=== PATIENT | female | born 1950 | race Caucasian/White ===

== ENCOUNTER 2016-11-08 08:18 | Outpatient (CLI) | payer BC | END 2016-11-08 08:19 | disposition home or self-care (01) | DX: C88.4 Extranodal marginal zone B-cell lymphoma of mucosa-associated lymphoid tissue [MALT-lymphoma] (principal) ==

== ENCOUNTER 2017-04-21 08:27 | Outpatient (CLI) | payer BC ==
[2017-04-21 11:36] LABS: CALCIUM 9.2 mg/dL (8.5-10.3); POTASSIUM 4.4 mmol/L (3.5-5.0)
[2017-04-21 11:51] LABS: HEMOGLOBIN A1C 0.54 g/dL
== END 2017-04-21 08:28 | disposition home or self-care (01) ==
LOC: LAB.F 08:27
PROVIDERS: ATTEND Physician Assistant Medical
DX: E11.9 Type 2 diabetes mellitus without complications (principal)
CPT/HCPCS: 36415; 80048; 83036

== ENCOUNTER 2017-04-27 11:00 | Outpatient (CLI) | payer BC ==
[2017-04-27 14:35] LABS: BILIRUBIN,TOTAL 1.8 mg/dL (0.2-1.0); CALCIUM 9.3 mg/dL (8.5-10.3); CREATININE 0.9 mg/dL (0.4-1.0); POTASSIUM 4.4 mmol/L (3.5-5.0); TOTAL PROTEIN 6.5 g/dL (6.7-8.2)
== END 2017-04-27 11:01 | disposition home or self-care (01) ==
LOC: LAB.WCP 11:00
PROVIDERS: ATTEND Internal Medicine Cardiovascular Disease
DX: I10 Essential (primary) hypertension (principal); E78.5 Hyperlipidemia, unspecified
CPT/HCPCS: 36415; 80053; 83880; 84443

== ENCOUNTER 2017-05-18 07:52 | Outpatient (CLI) | payer BC ==
[2017-05-18 12:25] LABS: CALCIUM 9.4 mg/dL (8.5-10.3)
== END 2017-05-18 07:53 | disposition home or self-care (01) ==
LOC: LAB.F 07:52
PROVIDERS: ATTEND Internal Medicine Cardiovascular Disease
DX: R60.0 Localized edema (principal); I48.0 Paroxysmal atrial fibrillation; I10 Essential (primary) hypertension
CPT/HCPCS: 36415; 80048; 83880

== ENCOUNTER 2017-11-29 08:16 | Outpatient (CLI) | payer BC ==
[2017-11-29 11:42] LABS: BASOPHILS % (AUTO) 0.5 %; EOSINOPHILS # (AUTO) 0.4 10^3/uL (0.0-0.7); EOSINOPHILS % (AUTO) 6.2 %; LYMPHOCYTES # (AUTO) 1.3 10^3/uL (1.5-3.5); LYMPHOCYTES % (AUTO) 21.6 %; MEAN CORPUSCULAR HEMOGLOBIN 32.6 pg (27.0-31.0); MEAN CORPUSCULAR HGB CONC 34.5 g/dL (32.0-36.0); MEAN CORPUSCULAR VOLUME 94.5 fL (81.0-99.0); MEAN PLATELET VOLUME 9.2 fL (7.9-10.8); MONOCYTES # (AUTO) 0.6 10^3/uL (0.0-1.0); MONOCYTES % (AUTO) 9.4 %; NEUTROPHILS # (AUTO) 3.8 10^3/uL (1.5-6.6); NEUTROPHILS % (AUTO) 62.3 %; PLT - PLATELET COUNT 203 10^3/uL (130-450); RED BLOOD COUNT 4.28 10^6/uL (4.20-5.40); RED CELL DISTRIBUTION WIDTH 13.5 % (12.0-15.0); WHITE BLOOD COUNT 6.1 x10^3/uL (4.8-10.8)
[2017-11-29 11:58] LABS: ALBUMIN 4.1 g/dL (3.2-5.5); ALBUMIN/GLOBULIN RATIO 1.8 (1.0-2.2); ALKALINE PHOSPHATASE 103 IU/L (42-121); ALT ALANINE AMINOTRANSFERASE 17 IU/L (10-60); AST ASPARTATE AMINOTRANSFERASE 16 IU/L (10-42); BILIRUBIN,TOTAL 1.4 mg/dL (0.2-1.0); BUN - BLOOD UREA NITROGEN 22 mg/dL (6-20); CALCIUM 9.3 mg/dL (8.5-10.3); CARBON DIOXIDE - CO2 26 mmol/L (21-32); CHLORIDE 102 mmol/L (101-111); CHOL/HDL RATIO 4.2 (<4.4); CHOLESTEROL 147 mg/dL; GFR - MDRD 55 (>89); GLUCOSE 118 mg/dL (70-100); HDL CHOLESTEROL 35 mg/dL; LDL CHOLESTEROL,CALCULATED 84 mg/dL; LDL/HDL RATIO 2.4 (<4.4); SODIUM 137 mmol/L (135-145); TOTAL PROTEIN 6.4 g/dL (6.7-8.2); VLDL CHOLESTEROL 28 mg/dL
[2017-11-29 12:23] LABS: HB2 TOTAL 15.1 g/dL; HEMOGLOBIN A1C 0.61 g/dL; HEMOGLOBIN A1C % 5.8 % (4.6-6.2)
== END 2017-11-29 08:17 | disposition home or self-care (01) ==
LOC: LAB.F 08:16
PROVIDERS: ATTEND Physician Assistant Medical
DX: E11.9 Type 2 diabetes mellitus without complications (principal); D50.9 Iron deficiency anemia, unspecified
CPT/HCPCS: 36415; 80053; 80061; 83036; 83721; 85025

== ENCOUNTER 2018-04-16 15:24 | Outpatient (CLI) | payer BC ==
[2018-04-16 18:22] LABS: BASOPHILS % (AUTO) 0.2 %; EOSINOPHILS # (AUTO) 0.2 10^3/uL (0.0-0.7); EOSINOPHILS % (AUTO) 2.6 %; LYMPHOCYTES # (AUTO) 1.1 10^3/uL (1.5-3.5); LYMPHOCYTES % (AUTO) 12.1 %; MEAN CORPUSCULAR HEMOGLOBIN 31.8 pg (27.0-31.0); MEAN CORPUSCULAR HGB CONC 33.1 g/dL (32.0-36.0); MEAN CORPUSCULAR VOLUME 96.1 fL (81.0-99.0); MEAN PLATELET VOLUME 9.2 fL (7.9-10.8); MONOCYTES % (AUTO) 10.3 %; NEUTROPHILS # (AUTO) 7.1 10^3/uL (1.5-6.6); NEUTROPHILS % (AUTO) 74.8 %; PLT - PLATELET COUNT 228 10^3/uL (130-450); RED BLOOD COUNT 5.04 10^6/uL (4.20-5.40); RED CELL DISTRIBUTION WIDTH 13.2 % (12.0-15.0); WHITE BLOOD COUNT 9.5 x10^3/uL (4.8-10.8)
[2018-04-17 08:53] LABS: ALBUMIN 4.2 g/dL (3.2-5.5); ALBUMIN/GLOBULIN RATIO 1.4 (1.0-2.2); BILIRUBIN,TOTAL 2.2 mg/dL (0.2-1.0); CALCIUM 9.6 mg/dL (8.5-10.3); CREATININE 1.1 mg/dL (0.4-1.0); TOTAL PROTEIN 7.2 g/dL (6.7-8.2)
== END 2018-04-16 15:25 | disposition home or self-care (01) ==
LOC: LAB.F 15:24
PROVIDERS: ATTEND Physician Assistant Medical
DX: R19.7 Diarrhea, unspecified (principal); D50.9 Iron deficiency anemia, unspecified
CPT/HCPCS: 36415; 80053; 85025

== ENCOUNTER 2018-04-17 16:09 | Emergency (ER) | payer BC, MEDICARE ==
[2018-04-17] MEDS ORDERED: LACTATED RINGERS 2,000 ML IV STA (16:41)
--- NOTE | 2018-04-17 16:42 | ED Physician Documentation ---
PD HPI ABD PAIN - Stated complaint Stated Complaint: DIARRHEA [id number] - Chief complaint Chief Complaint: Abd Pain - History obtained from History obtained from: Patient, Family - History of Present Illness Timing - onset: Other (After attending a green party 5 days ago she became very ill with lots of diarrhea, chills and fevers. No significant abdominal pain. Chills and fever have resolved and she had one episode of vomiting that night, but she persistently has profuse diarrhea which is slowly improving. She saw her doctor yesterday who did blood work showing a white count of 9-1/2 with a left shift. Conservative care was advised. She denies any recent travel, camping, or antibiotic use. No sick contacts that are known.) Review of Systems Ten Systems: 10 systems reviewed and negative Constitutional: reports: Fever, Chills Cardiac: denies: Chest pain / pressure, Palpitations Respiratory: denies: Dyspnea, Cough GI: reports: Vomiting (gone), Diarrhea. denies: Abdominal Pain, Bloody / black stool PD PAST MEDICAL HISTORY - Past Medical History Cardiovascular: Hypertension, High cholesterol, Coronary artery disease, Pulmonary embolism, Angina, Atrial fibrillation Respiratory: Asthma, Other Endocrine/Autoimmune: Type 2 diabetes, HyPOthyroidism GI: Chronic diarrhea HEENT: Glaucoma Musculoskeletal: Osteoarthritis - Past Surgical History Past Surgical History: Yes General: Cholecystectomy, Appendectomy Cardiovascular: CABG - Present Medications Home Medications: Ambulatory Orders Medication Instructions Recorded Confirmed Atorvastatin Calcium 10 mg PO QPM 08/04/14 09/23/14 Levothyroxine [Synthroid] 100 mcg PO DAILY 08/04/14 05/18/16 Metoprolol Succinate 50 mg PO QDBREAKFAST 08/04/14 09/23/14 Aspirin [Aspir-Low] 81 mg PO DAILY 05/18/16 05/18/16 Cholecalciferol (Vitamin D3) 2,000 unit PO DAILY 05/18/16 05/18/16 [Vitamin D3] Krill/[place]-3/Dha/Epa/Lipids [Hm 1 each PO DAILY 05/18/16 05/18/16 Megakrill 500 mg Softgel] Latanoprost 0.005% Ophth Drops 1 drops OPTH QPM 05/18/16 05/18/16 [Xalatan Ophth Drops] Metformin HCl 250 mg PO BIDWM 05/18/16 05/18/16 Metoprolol Succinate 25 mg PO QPM 05/18/16 05/18/16 Multivitamin [Multivitamins] 1 each PO DAILY 05/18/16 05/18/16 [place]-3/Dha/Epa/Fish Oil [Fish Oil 1 cap PO DAILY 05/18/16 05/18/16 EC 1,200 mg Softgel] Timolol 0.5% Ophth Drops [Timoptic 1 drops OPTH BID 05/18/16 05/18/16 0.5% Ophth Drops] Diphenoxylate/Atropine [Lomotil] 1 each PO QID PRN #16 tablet 04/17/18 - Allergies Allergies/Adverse Reactions: Allergies Allergy/AdvReac Type Severity Reaction Status Date / Time prochlorperazine edisylate * Allergy Severe throat Verified 08/04/14 20:34 [From Compazine] swelling prochlorperazine maleate * Allergy Severe throat Verified 08/04/14 20:34 [From Compazine] swelling codeine AdvReac Severe Hallucinati Verified 08/04/14 20:33 ons - Social History Does the pt smoke?: No Smoking Status: Former smoker Does the pt drink ETOH?: Yes Does the pt have substance abuse?: No - Immunizations Immunizations are current?: Yes PD ED PE NORMAL - Vitals Vital signs reviewed: Yes - General General: Alert and oriented X 3, No acute distress - Neck Neck: Supple, no meningeal sign, No bony TTP - Cardiac Cardiac: RRR, No murmur - Respiratory Respiratory: No respiratory distress, Clear bilaterally - Abdomen Abdomen: Normal bowel sounds, Soft, Non tender - Neuro Neuro: Alert and oriented X 3, Normal speech Results - Vitals Vitals: Vital Signs - 24 hr 04/17/18 04/17/18 16:16 16:31 Temperature 36.2 C L 36.6 C Heart Rate 74 64 Respiratory 18 16 Rate Blood Pressure 180/90 H O2 Saturation 96 100 Oxygen O2 Source Room air - Labs Labs: Microbiology 04/17/18 17:40 Clostridium difficile (PCR) - Final Stool 04/17/18 17:40 Campylobacter Antigen Assay - Final Stool Laboratory Tests 04/17/18 04/17/18 16:53 16:53 WBC 8.2 RBC 4.98 Hgb 16.0 Hct 46.9 MCV 94.2 MCH 32.1 H MCHC 34.0 RDW 13.1 Plt Count 224 MPV 8.5 Neut # (Auto) 5.8 Lymph # (Auto) 1.3 L Person # (Auto) 0.9 Eos # (Auto) 0.2 Baso # (Auto) 0.0 Absolute Nucleated RBC 0.00 Nucleated RBC % 0.0 Sodium 135 Potassium 3.8 Chloride 102 Carbon Dioxide 25 Anion Gap 8.0 BUN 19 Creatinine 1.1 H Estimated GFR (MDRD) 49 L Glucose 129 H Calcium 9.1 Total Bilirubin 2.2 H AST 17 ALT 22 Alkaline Phosphatase 131 H Total Protein 7.1 Albumin 4.2 Globulin 2.9 Albumin/Globulin Ratio 1.4 Lipase 31 PD MEDICAL DECISION MAKING - ED course ED course: 67-year-old woman with diarrhea, potentially infectious. Initial stool studies are negative as was her CBC. She is feeling better after IV fluids and Lomotil. - Sepsis Event Vital Signs: Vital Signs - 24 hr 04/17/18 04/17/18 16:16 16:31 Temperature 36.2 C L 36.6 C Heart Rate 74 64 Respiratory 18 16 Rate Blood Pressure 180/90 H O2 Saturation 96 100 Oxygen O2 Source Room air Departure - Departure Disposition: 01 Home, Self Care Clinical Impression: Infectious diarrhea Condition: Good Record reviewed to determine appropriate education?: Yes Instructions: ED Gastroenteritis Report Pend Prescriptions: Diphenoxylate/Atropine [Lomotil] 1 each PO QID PRN #16 tablet PRN Reason: Diarrhea Comments: Stool cultures will take a day or 2 to process. We will call you if they are positive. If not better in 2 days follow-up with your physician and return here if worse. Your blood pressure was elevated today on check into the emergency department. This does not mean that you have hypertension, it is a common phenomenon to come to the emergency department and have elevated blood pressure. I recommend that you see your primary care physician within the week to have it rechecked when you are feeling better.
[2018-04-17 17:01] LABS: BASOPHILS % (AUTO) 0.3 %; EOSINOPHILS # (AUTO) 0.2 10^3/uL (0.0-0.7); EOSINOPHILS % (AUTO) 2.7 %; LYMPHOCYTES # (AUTO) 1.3 10^3/uL (1.5-3.5); LYMPHOCYTES % (AUTO) 15.6 %; MEAN CORPUSCULAR HEMOGLOBIN 32.1 pg (27.0-31.0); MEAN CORPUSCULAR VOLUME 94.2 fL (81.0-99.0); MEAN PLATELET VOLUME 8.5 fL (7.9-10.8); MONOCYTES # (AUTO) 0.9 10^3/uL (0.0-1.0); MONOCYTES % (AUTO) 10.4 %; NEUTROPHILS # (AUTO) 5.8 10^3/uL (1.5-6.6); PLT - PLATELET COUNT 224 10^3/uL (130-450); RED BLOOD COUNT 4.98 10^6/uL (4.20-5.40); RED CELL DISTRIBUTION WIDTH 13.1 % (12.0-15.0); WHITE BLOOD COUNT 8.2 x10^3/uL (4.8-10.8)
[2018-04-17 17:16] LABS: ALBUMIN 4.2 g/dL (3.2-5.5); ALBUMIN/GLOBULIN RATIO 1.4 (1.0-2.2); BILIRUBIN,TOTAL 2.2 mg/dL (0.2-1.0); CALCIUM 9.1 mg/dL (8.5-10.3); CREATININE 1.1 mg/dL (0.4-1.0); TOTAL PROTEIN 7.1 g/dL (6.7-8.2)
[2018-04-17] MEDS ORDERED: DIPHENOX/ATROPINE 2.5/0.025 MG TABLET PO STA (18:08)
[2018-04-17 19:57] VITALS: BP 146/64
== END 2018-04-17 20:07 | disposition home or self-care (01) ==
LOC: ED 16:09
DX: A09 Infectious gastroenteritis and colitis, unspecified (principal); I10 Essential (primary) hypertension; E78.00 Pure hypercholesterolemia, unspecified; I25.119 Atherosclerotic heart disease of native coronary artery with unspecified angina pectoris; Z95.1 Presence of aortocoronary bypass graft; I48.91 Unspecified atrial fibrillation; E11.9 Type 2 diabetes mellitus without complications; Z79.84 Long term (current) use of oral hypoglycemic drugs; E03.9 Hypothyroidism, unspecified; M19.90 Unspecified osteoarthritis, unspecified site; Z79.82 Long term (current) use of aspirin; Z87.891 Personal history of nicotine dependence
CPT/HCPCS: 36415; 80053; 83690; 85025; 87045; 87046; 87493; 96360; 99283; A9270; J7120

== ENCOUNTER 2018-05-04 10:00 | Emergency (ER) | payer BC ==
[2018-05-04] MEDS ORDERED: PROPARACAINE 0.5% OPHTH DROPS 15 ML RIGHTEYE STA (11:50)
--- NOTE | 2018-05-04 12:27 | ED Physician Documentation ---
History of Present Illness - Stated complaint Stated Complaint: R EYE IRRITATION - Chief complaint Chief Complaint: Heent - Additonal information Additional information: hx from pt rubbed her eye this AM and it became red and teary now L eye too burning watery no dc no contacts hx glaucoma takes gtt every day just hasn't so far today 2/2 above Review of Systems Constitutional: denies: Fever Eyes: reports: Irritation PD PAST MEDICAL HISTORY - Past Medical History Past Medical History: Yes Cardiovascular: Hypertension, High cholesterol, Coronary artery disease, Pulmonary embolism, Angina, Atrial fibrillation Respiratory: Asthma, Other Neuro: None Endocrine/Autoimmune: Type 2 diabetes, HyPOthyroidism GI: Chronic diarrhea : None HEENT: Glaucoma Musculoskeletal: Osteoarthritis - Past Surgical History Past Surgical History: Yes General: Cholecystectomy, Appendectomy Cardiovascular: CABG - Present Medications Home Medications: Ambulatory Orders Medication Instructions Recorded Confirmed Atorvastatin Calcium 10 mg PO QPM 08/04/14 09/23/14 Levothyroxine [Synthroid] 100 mcg PO DAILY 08/04/14 05/18/16 Metoprolol Succinate 50 mg PO QDBREAKFAST 08/04/14 09/23/14 Aspirin [Aspir-Low] 81 mg PO DAILY 05/18/16 05/18/16 Cholecalciferol (Vitamin D3) 2,000 unit PO DAILY 05/18/16 05/18/16 [Vitamin D3] Krill/[place]-3/Dha/Epa/Lipids [Hm 1 each PO DAILY 05/18/16 05/18/16 Megakrill 500 mg Softgel] Latanoprost 0.005% Ophth Drops 1 drops OPTH QPM 05/18/16 05/18/16 [Xalatan Ophth Drops] Metformin HCl 250 mg PO BIDWM 05/18/16 05/18/16 Metoprolol Succinate 25 mg PO QPM 05/18/16 05/18/16 Multivitamin [Multivitamins] 1 each PO DAILY 05/18/16 05/18/16 [place]-3/Dha/Epa/Fish Oil [Fish Oil 1 cap PO DAILY 05/18/16 05/18/16 EC 1,200 mg Softgel] Timolol 0.5% Ophth Drops [Timoptic 1 drops OPTH BID 05/18/16 05/18/16 0.5% Ophth Drops] Diphenoxylate/Atropine [Lomotil] 1 each PO QID PRN #16 tablet 06/12/18 Olopatadine HCl [Patanol] 1 drops OP BID PRN #1 bottle 05/04/18 - Allergies Allergies/Adverse Reactions: Allergies Allergy/AdvReac Type Severity Reaction Status Date / Time prochlorperazine edisylate * Allergy Severe throat Verified 08/04/14 20:34 [From Compazine] swelling prochlorperazine maleate * Allergy Severe throat Verified 08/04/14 20:34 [From Compazine] swelling codeine AdvReac Severe Hallucinati Verified 05/04/18 10:13 ons - Social History Does the pt smoke?: No Smoking Status: Never smoker Does the pt drink ETOH?: Yes Does the pt have substance abuse?: No - Immunizations Immunizations are current?: Yes - POLST Patient has POLST: No PD ED PE NORMAL - Vitals Vital signs reviewed: Yes - HEENT HEENT: PERRL, EOMI, Other (no FB even with lid eversion, both eyes injected and tearing with photophobia, no dc, globes soft, no hazy cornea, pain relieved with proparacaine, no abrasions) Results - Vitals Vitals: Vital Signs - 24 hr 05/04/18 05/04/18 10:11 12:41 Temperature 36.3 C L Heart Rate 58 L Respiratory 18 Rate Blood Pressure 184/72 H 175/73 H O2 Saturation 100 Oxygen O2 Source Room air PD MEDICAL DECISION MAKING - ED course ED course: has hx glaucoma but no sx until rubbed eyes this AM globes soft, not hazy, relieved with proparacaine, do not think this is glaucoma , will check letty but may be slightly elev given known glaucoma seems like allergic conjunc will dc on patonol IOP R 24 IOP L 19 - Sepsis Event Vital Signs: Vital Signs - 24 hr 05/04/18 05/04/18 10:11 12:41 Temperature 36.3 C L Heart Rate 58 L Respiratory 18 Rate Blood Pressure 184/72 H 175/73 H O2 Saturation 100 Oxygen O2 Source Room air Departure - Departure Disposition: 01 Home, Self Care Clinical Impression: Allergic conjunctivitis Qualifiers: Laterality: bilateral Qualified Code(s): H10.13 - Acute atopic conjunctivitis, bilateral Condition: Good Instructions: ED Allergic Conjunctivitis Follow-Up: Kateryna Jara PA-C [Primary Care Provider] - Prescriptions: Olopatadine HCl [Patanol] 1 drops OP BID PRN #1 bottle PRN Reason: eye irritation Discharge Date/Time: 05/04/18 12:41
[2018-05-04 12:41] VITALS: BP 175/73
== END 2018-05-04 12:41 | disposition home or self-care (01) ==
LOC: ED 10:00
DX: H10.13 Acute atopic conjunctivitis, bilateral (principal); I10 Essential (primary) hypertension; E11.9 Type 2 diabetes mellitus without complications; H40.9 Unspecified glaucoma; Z79.84 Long term (current) use of oral hypoglycemic drugs; Z79.82 Long term (current) use of aspirin
CPT/HCPCS: 99283; J3490

== ENCOUNTER 2018-05-06 08:12 | Outpatient (CLI) | payer BC, MEDICARE ==
--- NOTE | 2018-05-07 07:16 | Ultrasound Report ---
Procedure Date: 05/06/2018 Accession Number: [id number] / [id number] Procedure: US - Head or Neck Soft Tissue CPT Code: FULL RESULT: EXAM: NECK ULTRASOUND EXAM DATE: 05/06/2018 08:45 AM. CLINICAL HISTORY: LOCALIZED SWELLING, MASS AND LUMP, NECK. History of lymphoma enlarging right neck mass x3 months COMPARISON: None. TECHNIQUE: Real-time sonographic imaging was performed by the manager customer utilizing color-flow. Multiple airport representative static images were saved for review. FINDINGS: Palpable region right neck is a 3.8 x 0.8 x 1.5 cm lymph node. There are other lymph nodes in the regions including once deeper adjacent to the carotid artery. There are also superficial lymph nodes. IMPRESSION: Palpable region is an enlarged right sided lymph node 3.8 x 0.8 x 1.5 cm RADIA
== END 2018-05-06 08:13 | disposition home or self-care (01) ==
LOC: DI 08:12
PROVIDERS: ATTEND Physician Assistant Medical
DX: R59.0 Localized enlarged lymph nodes (principal)
CPT/HCPCS: 76536

== ENCOUNTER 2018-05-30 07:16 | Outpatient (CLI) | payer BC, MEDICARE ==
[2018-05-30 12:45] LABS: ALBUMIN 4.1 g/dL (3.2-5.5); ALBUMIN/GLOBULIN RATIO 1.8 (1.0-2.2); ALKALINE PHOSPHATASE 113 IU/L (42-121); ALT ALANINE AMINOTRANSFERASE 21 IU/L (10-60); AST ASPARTATE AMINOTRANSFERASE 18 IU/L (10-42); BILIRUBIN,TOTAL 1.5 mg/dL (0.2-1.0); BUN - BLOOD UREA NITROGEN 21 mg/dL (6-20); CALCIUM 9.3 mg/dL (8.5-10.3); CARBON DIOXIDE - CO2 27 mmol/L (21-32); CHLORIDE 106 mmol/L (101-111); CHOLESTEROL 144 mg/dL; CREATININE 0.9 mg/dL (0.4-1.0); GFR - MDRD 62 (>89); GLUCOSE 119 mg/dL (70-100); HDL CHOLESTEROL 36 mg/dL; LDL CHOLESTEROL,CALCULATED 74 mg/dL; LDL/HDL RATIO 2.1 (<4.4); SODIUM 140 mmol/L (135-145); TOTAL PROTEIN 6.4 g/dL (6.7-8.2); VLDL CHOLESTEROL 34 mg/dL
[2018-05-30 13:15] LABS: HB2 TOTAL 14.2 g/dL; HEMOGLOBIN A1C 0.56 g/dL; HEMOGLOBIN A1C % 5.8 % (4.6-6.2)
== END 2018-05-30 07:17 | disposition home or self-care (01) ==
LOC: LAB.F 07:16
PROVIDERS: ATTEND Physician Assistant Medical
DX: E11.9 Type 2 diabetes mellitus without complications (principal); E03.9 Hypothyroidism, unspecified; I10 Essential (primary) hypertension
CPT/HCPCS: 36415; 80053; 80061; 83036; 83721; 84443

== ENCOUNTER 2018-07-25 21:12 | Emergency (ER) | payer BC, MEDICARE ==
[2018-07-25 21:32] LABS: BASOPHILS # (AUTO) 0.1 10^3/uL (0.0-0.1); BASOPHILS % (AUTO) 0.7 %; EOSINOPHILS # (AUTO) 0.5 10^3/uL (0.0-0.7); EOSINOPHILS % (AUTO) 5.1 %; HGB - HEMOGLOBIN 13.9 g/dL (12.0-16.0); LYMPHOCYTES % (AUTO) 9.9 %; MEAN CORPUSCULAR HEMOGLOBIN 32.3 pg (27.0-31.0); MEAN CORPUSCULAR HGB CONC 34.4 g/dL (32.0-36.0); MEAN CORPUSCULAR VOLUME 93.8 fL (81.0-99.0); MONOCYTES # (AUTO) 0.9 10^3/uL (0.0-1.0); MONOCYTES % (AUTO) 8.9 %; NEUTROPHILS # (AUTO) 7.4 10^3/uL (1.5-6.6); NEUTROPHILS % (AUTO) 75.4 %; PLT - PLATELET COUNT 231 10^3/uL (130-450); RED BLOOD COUNT 4.32 10^6/uL (4.20-5.40); RED CELL DISTRIBUTION WIDTH 13.5 % (12.0-15.0); WHITE BLOOD COUNT 9.8 x10^3/uL (4.8-10.8)
[2018-07-25 22:00] LABS: ALBUMIN 4.2 g/dL (3.2-5.5); ALBUMIN/GLOBULIN RATIO 1.5 (1.0-2.2); BILIRUBIN,TOTAL 1.2 mg/dL (0.2-1.0); CALCIUM 9.2 mg/dL (8.5-10.3); CREATININE 0.8 mg/dL (0.4-1.0)
--- NOTE | 2018-07-25 22:29 | XRAY Report ---
Reason: chest pain Procedure Date: 07/25/2018 Accession Number: [id number] / [id number] Procedure: XR - Chest 2 View X-Ray CPT Code: 33701 FULL RESULT: EXAM: CHEST RADIOGRAPHY. EXAM DATE: 07/25/2018 10:07 PM. CLINICAL HISTORY: Chest pain. COMPARISON: 09/23/2014 2:47 AM, x-ray chest PA and lateral 01/08/2013 3:31 PM. TECHNIQUE: 2 views. FINDINGS: Lungs/Pleura: There is small streaky bilateral lower lobe opacity, left greater than right. There is no signal confusion. No definite evidence of a pneumothorax demonstrate at this time. Small patchy nodular opacity also seen within the right upper lobe. Mediastinum: Heart and mediastinal contours are unremarkable. Other: Small to medium hiatal hernia. IMPRESSION: 1. There is a small patchy nodular right upper lobe opacity coupled with streaky bilateral lower lung opacities, left greater than right. These may be from atelectasis, aspiration, and/or infection. Follow-up noncontrast chest CT recommended at 4 weeks to assess for resolution after treatment. 2. Small to medium hiatal hernia, increased from the recent prior exam. [facility]
--- NOTE | 2018-07-25 22:48 | ED Physician Documentation ---
PD HPI CHEST PAIN - Stated complaint Stated Complaint: CP - Chief complaint Chief Complaint: Cardiac - History obtained from History obtained from: Patient - History of Present Illness Timing - onset: Enter time (08:00), Today Timing - onset during: Sleep Timing - details: Abrupt onset, Waxing and waning Pain level now: 3 Quality: Pain Location: Left chest Radiation: No: Jaw, Neck, Back, Abdominal, Left upper extremity, Right upper extremity Improved by: Rest Worsened by: Exertion, Inspiration Associated symptoms: No: Shortness of air, Diaphoresis, Nausea, Vomiting, Feeling faint / dizzy, General Weakness, Palpitations, Cough Similar symptoms before: Has not had sx before Recently seen: Surgery (Right neck lymphadenectomy last week) Review of Systems Constitutional: reports: Reviewed and negative Cardiac: reports: Chest pain / pressure. denies: Palpitations, Pedal edema Respiratory: denies: Dyspnea GI: reports: Reviewed and negative Musculoskeletal: reports: Neck pain (post-lymphadenectomy, no worse than previous to tonights symptoms) PD PAST MEDICAL HISTORY - Past Medical History Cardiovascular: Hypertension, High cholesterol, Coronary artery disease, Pulmonary embolism, Angina, Atrial fibrillation Respiratory: Asthma, Other Neuro: None Endocrine/Autoimmune: Type 2 diabetes, HyPOthyroidism GI: Chronic diarrhea : None HEENT: Glaucoma Musculoskeletal: Osteoarthritis - Past Surgical History Past Surgical History: Yes General: Cholecystectomy, Appendectomy Cardiovascular: CABG - Present Medications Home Medications: Ambulatory Orders Medication Instructions Recorded Confirmed Atorvastatin Calcium 20 mg PO QPM 08/04/14 09/23/14 Levothyroxine [Synthroid] 100 mcg PO DAILY 08/04/14 05/18/16 Aspirin [Aspir-Low] 81 mg PO DAILY 05/18/16 05/18/16 Cholecalciferol (Vitamin D3) 2,000 unit PO DAILY 05/18/16 05/18/16 [Vitamin D3] Krill/[place]-3/Dha/Epa/Lipids [Hm 1 each PO DAILY 05/18/16 05/18/16 Megakrill 500 mg Softgel] Latanoprost 0.005% Ophth Drops 1 drops OPTH QPM 05/18/16 05/18/16 [Xalatan Ophth Drops] Metformin HCl 250 mg PO BIDWM 05/18/16 05/18/16 Metoprolol Succinate 50 mg PO DAILY 05/18/16 05/18/16 Multivitamin [Multivitamins] 1 each PO DAILY 05/18/16 05/18/16 [place]-3/Dha/Epa/Fish Oil [Fish Oil 1 cap PO DAILY 05/18/16 05/18/16 EC 1,200 mg Softgel] Timolol 0.5% Ophth Drops [Timoptic 1 drops OPTH BID 05/18/16 05/18/16 0.5% Ophth Drops] Losartan [Cozaar] 50 mg PO DAILY 07/25/18 07/25/18 - Allergies Allergies/Adverse Reactions: Allergies Allergy/AdvReac Type Severity Reaction Status Date / Time prochlorperazine edisylate * Allergy Severe throat Verified 07/25/18 21:33 [From Compazine] swelling prochlorperazine maleate * Allergy Severe throat Verified 07/25/18 21:33 [From Compazine] swelling codeine AdvReac Severe Hallucinati Verified 07/25/18 21:33 ons - Social History Does the pt smoke?: No Smoking Status: Never smoker Does the pt drink ETOH?: Yes Does the pt have substance abuse?: No - Immunizations Immunizations are current?: Yes - POLST Patient has POLST: No PD ED PE NORMAL - Vitals Vital signs reviewed: Yes - General General: Alert and oriented X 3, No acute distress, Well developed/nourished - Neck Neck: Supple, no meningeal sign, Other (right neck surgical site C/D/I) - Cardiac Cardiac: RRR, No murmur - Respiratory Respiratory: No respiratory distress, Clear bilaterally - Extremities Extremities: No edema Results - Vitals Vitals: Oxygen O2 Source Room air - EKG (time done) No standard instances Rate: Rate (enter#) (73) Rhythm: NSR [place]: Normal Intervals: Normal SD QRS: Normal Ischemia: Normal ST segments - Labs Labs: Laboratory Tests 07/25/18 07/25/18 07/25/18 21:25 21:25 21:25 WBC 9.8 RBC 4.32 Hgb 13.9 Hct 40.5 MCV 93.8 MCH 32.3 H MCHC 34.4 RDW 13.5 Plt Count 231 MPV 9.0 Neut # (Auto) 7.4 H Lymph # (Auto) 1.0 L [place] # (Auto) 0.9 Eos # (Auto) 0.5 Baso # (Auto) 0.1 Absolute Nucleated RBC 0.00 Nucleated RBC % 0.0 Sodium 139 Potassium 4.4 Chloride 105 Carbon Dioxide 27 Anion Gap 7.0 BUN 18 Creatinine 0.8 Estimated GFR (MDRD) 71 L Glucose 132 H Calcium 9.2 Total Bilirubin 1.2 H AST 18 ALT 13 Alkaline Phosphatase 141 H Troponin I < 0.04 Total Protein 7.0 Albumin 4.2 Globulin 2.8 Albumin/Globulin Ratio 1.5 Lipase 39 - Rads (name of study) chest xray Radiology: Prelim report reviewed, See rad report CT chest Radiology: Prelim report reviewed, See rad report PD MEDICAL DECISION MAKING - ED course Complexity details: reviewed results, re-evaluated patient, considered differential, d/w patient - Sepsis Event Vital Signs: Oxygen O2 Source Room air Departure - Departure Disposition: 01 Home, Self Care Clinical Impression: Chest pain Condition: Good Instructions: ED Chest Pain Atypical Unkn Cause Follow-Up: Kateryna Jara PA-C [Primary Care Provider] - Discharge Date/Time: 07/26/18 03:35
[2018-07-25] MEDS ORDERED: MORPHINE 2 MG/ML CARPUJECT IVP STA (23:12)
[2018-07-25] MEDS ORDERED: IOPAMIDOL-300 100 ML VIAL ONE (23:41)
[2018-07-26] MEDS ORDERED: IOPAMIDOL-300 100 ML VIAL IVP ONE (00:27)
--- NOTE | 2018-07-26 01:16 | CT Report ---
Reason: left pleuritic chest pain Procedure Date: 07/26/2018 Accession Number: [id number] / [id number] Procedure: CT - Chest Angio (PE) CPT Code: FULL RESULT: EXAM: CT ANGIOGRAM CHEST EXAM DATE: 07/26/2018 12:24 AM. CLINICAL HISTORY: Left pleuritic chest pain. COMPARISON: CT ANGIO CHEST 12/02/2012 2:00 AM. TECHNIQUE: Routine helical imaging was performed through the chest in the pulmonary arterial phase. IV Contrast: 80 mL Isovue 300. Reconstructions: Coronal 3-D MIP reconstructions. Sagittal and coronal. In accordance with CT protocol optimization, one or more of the following dose reduction techniques were utilized for this exam: automated exposure control, adjustment of mA and/or KV based on patient size, or use of iterative reconstructive technique. FINDINGS: Pulmonary Arteries: Diagnostic quality: Adequate through the segmental arteries. No evidence for acute or chronic pulmonary emboli. RV/LV is within normal limits. There is no interventricular septal bowing. There is no reflux of contrast material in the IVC. Lungs/Pleura: Dependent atelectasis is noted. No consolidation, mass or nodule. No effusions or pneumothorax. No endobronchial lesions. Mediastinum: Mild cardiac enlargement. No pericardial effusion or adenopathy. Previous sternotomy. Multivessel coronary artery calcifications are noted. Thoracic Aorta: No aneurysm. Patchy atheromatous plaques are noted. No mediastinal hematoma or dissection. Aberrant right subclavian artery passing posterior to the esophagus, a normal variant. Upper Abdomen: 5 cm low density left liver cyst incompletely imaged. Small paraesophageal hernia noted. Other: 6 cm enlarging inferior left thyroid low density nodule. No calcifications. No supraclavicular or axillary adenopathy. Lobular possible mass in the medial right breast measuring 1.7 x 1.8 x 2.4 cm on image 10, 38 and 4, 81. IMPRESSION: 1. Normal pulmonary CT angiogram. No pulmonary emboli. 2. Dependent atelectasis. No acute pulmonary process. 3. Previous sternotomy. Mild cardiac enlargement and coronary artery disease. No adenopathy. 4. Possible right breast mass measuring 2.4 cm. Correlate with physical exam. If the patient has not had a recent mammogram, consider further evaluation at a breast center. Findings discussed with Dr. Acevedo at 1:20 AM on 07/26/2018. [facility]
[2018-07-26] MEDS ORDERED: HYDROmorphone 1 MG/ML CARPUJECT IVP STA (02:31)
[2018-07-26] MEDS ORDERED: HYDROmorphone 1 MG/ML CARPUJECT ONE (02:47)
[2018-07-26 03:11] VITALS: BP 128/61
== END 2018-07-26 03:35 | disposition home or self-care (01) ==
LOC: ED 21:12
DX: R07.9 Chest pain, unspecified (principal); I10 Essential (primary) hypertension; I48.91 Unspecified atrial fibrillation; Z86.711 Personal history of pulmonary embolism; I25.709 Atherosclerosis of coronary artery bypass graft(s), unspecified, with unspecified angina pectoris; E11.9 Type 2 diabetes mellitus without complications; Z79.84 Long term (current) use of oral hypoglycemic drugs; K44.9 Diaphragmatic hernia without obstruction or gangrene
CPT/HCPCS: 36415; 71046; 71275; 80053; 83690; 84484; 85025; 93005; 96374; 96375; 99283; 99285; J1170; Q9967